=== PATIENT | male | born 1965 | race Caucasian/White ===

== ENCOUNTER 2022-03-31 17:48 | Emergency (ER) | payer OTHER, SELFPAY ==
--- NOTE | ~2022-03-31 | CT_ITS ---
EXAMINATION: CT ABDOMEN AND PELVIS WITHOUT CONTRAST CLINICAL INFORMATION: Hematuria COMPARISON: CT abdomen pelvis 11/02/2016 TECHNIQUE: Multidetector volumetric imaging was performed from the superior aspect of the liver through the pubic symphysis. Sagittal and coronal reformatted images were obtained on the technologist's workstation. This CT examination was performed using dose optimization techniques as appropriate, variously including the following: *Automated exposure control *Adjustment of mA and/or kV according to patient size (this includes techniques or standardized protocols for targeted exams where dose is matched to indication/reason for exam; i.e. extremities or head) *Use of iterative reconstruction technique DLP: 825 mGy-cm FINDINGS: LUNG BASES: The visualized lung bases are unremarkable. LIVER, GALLBLADDER, AND BILIARY TREE: The liver is mildly enlarged measuring 18.8 cm in greatest length and demonstrates decreased attenuation consistent with hepatic steatosis. No focal hepatic lesion or biliary ductal dilatation is present. The gallbladder is unremarkable with no evidence of radiopaque gallstones, gallbladder wall thickening, or obvious pericholecystic inflammatory changes. PANCREAS: Unremarkable. SPLEEN: There is mild splenomegaly at 13.2 cm. ADRENAL GLANDS: Unremarkable. KIDNEYS AND URETERS: The kidneys are normal in size, shape, and attenuation. There is a punctate 2 mm right upper pole renal calculus. No hydronephrosis, hydroureter, or other calculi seen. No perinephric stranding. BLADDER: Unremarkable. GASTROINTESTINAL TRACT: The small and large bowel are unremarkable aside from a few scattered colonic diverticula. The appendix is unremarkable. ABDOMINAL WALL: Tiny inguinal hernias containing only fat. There is mild diastases of the rectus muscles superior to the umbilicus. LYMPH NODES: No retroperitoneal lymphadenopathy. VASCULAR: Unremarkable. Some minimal infiltrate aortic calcified plaque is present. PELVIC VISCERA: There is mild BPH. Seminal vesicles appear normal. OSSEOUS STRUCTURES: Mild degenerative changes present spine most prominent at L5-S1. There is a Schmorl's node at the superior endplate of L4. CT/CT abdomen pelvis wo con IMPRESSION: 1. Mildly enlarged fatty liver with associated mild splenomegaly. 2. Punctate nonobstructing 2 mm right renal calculus. 3. Other incidental findings described above. Fleischner guidelines were followed.
[2022-03-31 20:11] LABS: Appearance Urine CLEAR; Color Urine YELLOW; Glucose Urine UA NEG (NEG); Leukocyte Esterase Urine NEG (NEG); Nitrite Urine NEG (NEG); PH 5.5 (5.0-8.0); Specific Gravity - Urine >= 1.030 (1.005-1.025); Urine Blood NEG (NEG); Urine Ketones NEG (NEG); Urine Protein NEG (NEG-TRACE)
[2022-03-31 20:39] VITALS: BP 110/69; PULSE 71; RESP 18; TEMP 36.7; O2SAT 97; BMI 30.8
[2022-03-31 20:58] LABS: MANUAL DIFF FLAG NO
[2022-03-31 20:59] LABS: Basophils Percent Auto 0.5 % (0-2); Eosinophils Absolute Auto 0.2 X10*3/uL (0.0-0.4); Eosinophils Percent Auto 2.6 % (0-4); Hematocrit 41.7 % (42.0-52.0); Hemoglobin 14.3 g/dl (14.0-18.0); Imm Gran Abs Auto 0.04 X10*3/uL (0.00-0.03); Imm Gran Pct Auto 0.6 % (0.0-0.4); Lymphocytes Absolute Auto 1.9 X10*3/uL (1.2-4.9); Lymphocytes Percent Auto 29.7 % (20-40); Mean Corpuscular HGB Conc 34.3 g/dl (31.0-36.0); Mean Corpuscular Hemoglobin 31.6 pg (27.0-33.0); Mean Corpuscular Volume 92.1 fL (80.0-98.0); Mean Platelet Volume 9.1 fL (9.4-12.4); Monocytes Absolute Auto 0.5 X10*3/uL (0.1-1.2); Monocytes Percent Auto 8.3 % (2-11); Neutrophils Absolute Auto 3.8 x10*3/uL (2.0-8.3); Neutrophils Percent Auto 58.3 % (45-73); Platelet Count 243 X10*3/uL (160-400); Red Blood Count 4.53 X10*6/uL (4.60-5.80); Red Cell Distribution Width 12.3 % (11.0-16.0); White Blood Count 6.5 X10*3/uL (4.8-10.8)
[2022-03-31 21:17] LABS: Alanine Aminotransferase 31 U/L (0-40); Albumin Level 4.4 g/dL (3.5-5.0); Alkaline Phosphatase 53 U/L (39-117); Anion Gap 12 (12-20); Aspartate Amino Transferase 24 U/L (5-37); Blood Urea Nitrogen 16 mg/dL (9-16); Calcium 9.2 mg/dL (8.4-10.2); Carbon Dioxide 25 mmol/L (22-29); Chloride 108 mmol/L (96-108); Creatinine Clr Calc Pharmacy 104.9; Estimated Glomerular Filt Rate > 60; Glucose Random 86 mg/dL (60-115); Potassium 4.2 mmol/L (3.3-5.1); Sodium 141 mmol/L (135-145); Total Protein 6.8 g/dL (6.5-8.0)
[2022-04-01 00:42] VITALS: BP 132/80; PULSE 59; RESP 12; O2SAT 98
--- NOTE | 2022-04-01 00:48 | ED_ITS ---
HPI - Male Genitourinary General Chief complaint: Urogenital-Male Stated complaint: Blood in Urine Time Seen by Provider: 04/01/22 00:20 Source: patient and family ( spouse) Mode of arrival: ambulatory Limitations: no limitations History of Present Illness HPI Narrative: 56-year-old male had 1 time blood in the urine while was urinating yesterday, now patient is urinating clear urine with no blood he can see but started to complain of the whole left side body ache more pronounced to the left groin area. No flank pain, no fever, no chills, no dysuria, no urinary frequency, no more blood in the urine, denies taking any anticoagulation. Related Data Allergies Allergy/AdvReac Type Severity Reaction Status Date / Time No Known Allergies Allergy Verified 03/31/22 20:38 Review of Systems Review of Systems: All other systems are reviewed and are negative Constitutional: Reports as per HPI and Reports no additional constitutional complaints Eyes: Reports as per HPI and Reports no additional eye complaints Reports system reviewed and no additional complaints, except as documented Cardiovascular: Reports as per HPI and Reports no additional cardiovascular complaints Respiratory: Reports as per HPI and Reports no additional respiratory complaints Gastrointestinal: Reports as per HPI and Reports no additional gastrointestinal complaints Genitourinary: Reports no additional female genitourinary complaints Musculoskeletal: Reports no additional musculoskeletal complaints Skin/Breast: Reports system reviewed and no additional complaints, except as docu Psychiatric: Reports no additional psychiatric complaints Endocrine: Reports no additional endocrine complaints Hematologic/Lymphatic: Reports no additional hematologic/lymphatic complaints Allergic/Immunologic: Reports no additional allergic/immunologic complaints Reports system reviewed and no additional complaints, except as documented and Reports Abnormal speech present [facility] Social History Social History Alcohol intake: current Alcohol intake frequency: 3 or more drinks per day Alcohol type: hard liquor Patient Tobacco Use Status: Never used Tobacco Use of substances other than those prescribed or required for medical reasons: No Advance Directives: No Physical Exam Vital Signs: Vital Signs: Last Vital Signs Temp 98.1 F 03/31/22 20:39 Pulse 63 04/01/22 02:00 Resp 12 04/01/22 00:42 BP 123/78 04/01/22 02:00 Pulse Ox 98 04/01/22 02:00 O2 Del Method 04/01/22 02:00 BMI result Body Mass Index 30.8 vital signs have been reviewed as appeared to be correct. Blood pressure normal. Heart rate normal. Respiration rate normal. Temperature normal. Oxygen saturation normal. Appearance: Alert. Oriented X3. No acute distress. Head: Normal external exam. Normocephalic. Atraumatic. No Ovalles signs noted. No raccoon eyes noted Eyes: PERRLA. EOMI. Conjunctiva and sclera normal. Eyelids normal. ENT: TM's Normal. Pharynx normal. Uvula midline. Moist mucous membranes. No trismus noted. No drooling noted. No muffled voice noted. Neck: Normal inspection. Neck supple. FROM. No adenopathy. Thyroid Normal. No meningeal signs. No neck mass noted. CVS: Normal heart rate and rhythm. Heart sound normal. No murmurs noted. Pulses normal throughout. Respiratory: No respiratory distress. Painless inspiration. Breath sounds normal. No wheezes/rales/rhonchi noted. Chest nontender. No accessory muscle usage noted or decreased air movement noted. Abdomen: Soft and nontender. Bowel sounds normal in all 4 quadrants. No distention noted. No organomegaly noted. No visible injury noted. Back: No CVA tenderness. Full range of motion noted. Skin: Skin warm and dry. Normal skin color. Normal skin turgor. No rashes/lesions/lacerations noted. Extremities: No lower extremity edema. Extremities exhibit normal range of motion. Extremities nontender. Neuro: Oriented X 3. Cranial nerve exam: II-XII are grossly intact No motor deficit. No sensory deficit. Reflexes normal. Course Course Course Narrative: 56-year-old male came in for evaluation of hematuria and left-sided abdominal pain patient has unremarkable labs and CT. Will reassure the patient and discharged to follow-up with urologist as an outpatient. MDM - Male Genitourinary Lab Data Attestation: I reviewed the patient's lab results. Result diagrams: 03/31/22 20:48 03/31/22 20:48 Labs: Lab Results 03/31/22 03/31/22 03/31/22 Range/Units 19:42 20:48 20:48 WBC 6.5 (4.8-10.8) X10*3/uL RBC 4.53 L (4.60-5.80) X10*6/uL Hgb 14.3 (14.0-18.0) g/dl Hct 41.7 L (42.0-52.0) % MCV 92.1 (80.0-98.0) fL MCH 31.6 (27.0-33.0) pg MCHC 34.3 (31.0-36.0) g/dl RDW 12.3 (11.0-16.0) % Plt Count 243 (160-400) X10*3/uL MPV 9.1 L (9.4-12.4) fL Immature Gran % (Auto) 0.6 H (0.0-0.4) % Neut % (Auto) 58.3 (45-73) % Lymph % (Auto) 29.7 (20-40) % Wright % (Auto) 8.3 (2-11) % Eos % (Auto) 2.6 (0-4) % Baso % (Auto) 0.5 (0-2) % Lymph # (Auto) 1.9 (1.2-4.9) X10*3/uL Wright # (Auto) 0.5 (0.1-1.2) X10*3/uL Eos # (Auto) 0.2 (0.0-0.4) X10*3/uL Baso # (Auto) 0.0 (0.0-0.2) X10*3/uL Abs Immat Gran (auto) 0.04 H (0.00-0.03) X10*3/uL Absolute Neuts (auto) 3.8 (2.0-8.3) x10*3/uL Absolute Nucleated RBC 0.000 (0.0-0.012) X10*3/uL Nucleated RBC % (auto) 0.0 (0.0-0.2) /100WBC Sodium 141 (135-145) mmol/L Potassium 4.2 (3.3-5.1) mmol/L Chloride 108 (96-108) mmol/L Carbon Dioxide 25 (22-29) mmol/L Anion Gap 12 (12-20) BUN 16 (9-16) mg/dL Creatinine 1.02 (0.5-1.4) mg/dL Estim Creat Clear Calc 104.9 Estimated GFR > 60 Random Glucose 86 (60-115) mg/dL Calcium 9.2 (8.4-10.2) mg/dL Total Bilirubin 1.0 (0.0-1.0) mg/dL AST 24 (5-37) U/L ALT 31 (0-40) U/L Alkaline Phosphatase 53 (39-117) U/L Total Protein 6.8 (6.5-8.0) g/dL Albumin 4.4 (3.5-5.0) g/dL Urine Color YELLOW Urine Appearance CLEAR Urine pH 5.5 (5.0-8.0) Ur Specific [place] >= 1.030 H (1.005-1.025) Urine Protein NEG (NEG-TRACE) MG/DL Urine Glucose (UA) NEG (NEG) MG/DL Urine Ketones NEG (NEG) MG/DL Urine Blood NEG (NEG) Urine Nitrite NEG (NEG) Ur Leukocyte Esterase NEG (NEG) Imaging Data CT abdomen and pelvis.: Attestation: I personally reviewed and interpreted this imaging study as follows: Radiologist's impression: 1.? Mildly enlarged fatty liver with associated mild splenomegaly. 2.? Punctate nonobstructing 2 mm right renal calculus. 3.? Other incidental findings described above. Discharge Plan Discharge Clinical Impression: Hematuria, Abdominal pain Patient Disposition: Home, Self-Care Instructions: Abdominal Pain (ED), Hematuria (ED) Referrals: Elfego Long MD [Physician] -
[2022-04-01 02:00] VITALS: BP 123/78; PULSE 63; O2SAT 98
== END 2022-04-01 03:34 | disposition home or self-care (01) ==
PROVIDERS: Emergency Provider Emergency Medicine
DX: R31.9 Hematuria, unspecified (principal); R10.9 Unspecified abdominal pain; K76.0 Fatty (change of) liver, not elsewhere classified
CPT/HCPCS: 36415; 51798; 74176; 80053; 81003; 85025; 99284

== ENCOUNTER 2025-01-30 19:52 | Emergency (ER) | payer OTHER, SELFPAY ==
--- NOTE | ~2025-01-30 | XR_ITS ---
CLINICAL HISTORY: pain s p crush injury Right hand, 3 views COMPARISON: None FINDINGS: No acute fracture. No dislocation. Chronic appearing distal right 5th metacarpal fracture. Unremarkable soft tissues. IMPRESSION: No acute findings. This document has been electronically signed by: Arron Arredondo MD on 01/30/2025 21:12:53
--- NOTE | ~2025-01-30 | XR_ITS ---
CLINICAL HISTORY: cough Chest X-ray, 2 Views COMPARISON: None FINDINGS: No consolidation. No pleural effusion. No pneumothorax. No cardiomegaly. No acute fracture. IMPRESSION: No acute findings. This document has been electronically signed by: Arron Arredondo MD on 01/30/2025 21:11:22
--- NOTE | ~2025-01-30 | XR_ITS ---
CLINICAL HISTORY: pain s p crush injury Left hand, 3 views COMPARISON: None FINDINGS: No acute fracture. No dislocation. Unremarkable soft tissues. IMPRESSION: No acute findings. This document has been electronically signed by: Arron Arredondo MD on 01/30/2025 21:12:37
[2025-01-30 20:18] VITALS: BP 126/77; PULSE 100; RESP 18; TEMP 36.6; O2SAT 96; BMI 30.2
--- NOTE | 2025-01-30 20:18 | ED_ITS ---
HPI - General Adult General Chief complaint: General Medical Stated complaint: left hand inj/ nasal congestion Time Seen by Provider: 01/30/25 23:00 Source: patient Mode of arrival: ambulatory Limitations: no limitations History of Present Illness ED Provider: HPI narrative: patient complaining of pain in both hands happened yesterday when he was trying to load project architect slipped and handles of the blower landed on his hand especially in the left also patient complaining of cough for last 3 weeks with mucopurulent phlegm patient does smoke and walked outside no fever no chills does not more cough in the night Related Data Previous Rx's ?Medication ?Instructions ?Recorded albuterol sulfate 90 mcg/actuation 2 puff inhalation Q6H PRN 01/30/25 aerosol inhaler shortness of breath or wheezing #8.5 grams cefuroxime axetil 500 mg tablet 500 mg PO BID 7 days #14 tabs 01/30/25 ibuprofen 600 mg tablet 600 mg PO Q6H PRN fever or pain 01/30/25 #30 tabs prednisone 20 mg tablet 40 mg (2 x 20 mg) PO DAILY #10 tabs 01/30/25 Allergies Allergy/AdvReac Type Severity Reaction Status Date / Time No Known Allergies Allergy Verified 01/30/25 20:21 Review of Systems Review of Systems: Yes all other systems are reviewed and are negative [facility] Social History Social History Alcohol intake: current Alcohol intake frequency: 3 or more drinks per day Alcohol type: hard liquor Patient Tobacco Use Status: Never used Tobacco Advance Directives: No Advance Directives Information Provided: No Do you have a plan to hurt others: No Plan Physical Exam ED Vital Signs: Vital Signs - 24 hr 01/30/25 20:18 01/30/25 23:48 Temperature 98 F 98.2 F Pulse Rate 100 75 Respiratory Rate 18 16 Blood Pressure 126/77 145/90 H Pulse Oximetry 96 98 Oxygen Delivery Method Room Air Room Air BMI result Body Mass Index 30.2 Appearance: Alert. Oriented X3. No acute distress. Eyes: no pallor or icterus ENT: Pharynx normal. Oral Mucosa moist Neck: Normal inspection. Neck supple. CVS: Normal heart rate and rhythm. Pulses normal. Respiratory: No respiratory distress. Equal air entry bilateral, no wheezing/rales/rhonchi prolonged expiration with frequent cough Abdomen: Soft and nontender. Bowel sounds are present, no mass palpable, no CVA tenderness Skin: Skin warm and dry. Normal skin color. Normal skin turgor. Extremities: No lower extremity edema. No calf tenderness bilateral diffuse hand tenderness no deformity no open wounds Neuro: Oriented X 3. No motor deficit. No sensory deficit.No cerebellar signs , cranial nerves II-XII intact Course Course Course Narrative: This is an RME: Additional HPI, ROS, PE not included below will be deferred to primary provider. RME assessment and note performed by: Lorrie Workman PA-C This is a [id number]-male who presents to the ER with complaints of BL hand pain. Reports that yesterday he was moving a project architect and the project architect landed on both of his hands. Patient with moderate edema noted to the dorsum of his left hand, with scattered superficial abrasions noted. Unsure of tetanus status. He also reports that over the last month he has had nasal congestion and a cough. No fevers. Lungs clear to auscultation, he is a nonsmoker. Plan: Update tetanus, x-ray chest, and bilateral hands, further ER evaluation needed. Medications Administered Discontinued Medications Generic Name Dose Route Start Last Admin Trade Name Freq PRN Reason Stop Dose Admin Albuterol Sulfate 2 puff 01/30/25 23:17 01/30/25 23:33 Albuterol Sulfate 90 Mcg 8 Gm Inhaler INHALE 01/30/25 23:18 2 puff ONCE ONE Administration Cefuroxime Axetil 500 mg 01/30/25 23:16 01/30/25 23:33 Cefuroxime Axetil 500 Mg Tablet PO 01/30/25 23:17 500 mg ONCE ONE Administration Diphtheria/Tetanus/Acell Pertussis 0.5 ml 01/30/25 20:22 01/30/25 23:15 Diphth,Pertus(Acell),Tet Adult 0.5 Ml Syringe IM 01/30/25 20:23 0.5 ml .ONCE ONE Administration Guaifenesin 600 mg 01/30/25 23:16 01/30/25 23:32 Guaifenesin La 600 Mg Tab.Er.12h PO 01/30/25 23:17 600 mg ONCE ONE Administration Ibuprofen 600 mg 01/30/25 23:19 01/30/25 23:32 Ibuprofen 600 Mg Tablet PO 01/30/25 23:20 600 mg ONCE ONE Administration Prednisone 60 mg 01/30/25 23:16 01/30/25 23:33 Prednisone 20 Mg Tablet PO 01/30/25 23:17 60 mg ONCE ONE Administration Medical Decision Making Medical Decision Making [facility] Narrative: patient clinically with bronchitis and hand contusion from project architect x-ray negative for fracture will give ibuprofen for pain prednisone antibiotics and inhaler for bronchitis Independent Interpretation I performed an independent interpretation of an: Plain X-Ray Interpretation: no acute Discharge Plan Discharge Clinical Impression: Acute bronchitis, Contusion of hand Patient Disposition: Home, Self-Care Instructions: Acute Bronchitis (ED), Contusion in Adults (ED) Additional Instructions: your x-ray of the hands negative for any fracture apply ice take ibuprofen for pain antibiotic and prednisone inhaler for bronchitis as prescribed follow with your PCP if not better stop smoking Prescriptions: New prednisone 20 mg tablet 40 mg PO DAILY Qty: 10 0RF ibuprofen 600 mg tablet 600 mg PO Q6H PRN (Reason: fever or pain) Qty: 30 0RF cefuroxime axetil 500 mg tablet 500 mg PO BID 7 Days Qty: 14 0RF albuterol sulfate 90 mcg/actuation HFA aerosol inhaler 2 puff inhalation Q6H PRN (Reason: shortness of breath or wheezing) Qty: 8.5 0RF Interventions: ED Discharge Assessment Last Done: 01/30/25 23:48 Print Language: Filipino
[2025-01-30] MEDS: Diphth,Pertus(ACell),Tet Adult 0.5 ML SYRINGE IM (23:15)
[2025-01-30] MEDS: guaiFENesin LA 600 MG TAB.ER.12H PO (23:32)
[2025-01-30] MEDS: Ibuprofen 600 MG TABLET PO (23:32)
[2025-01-30] MEDS: Albuterol Sulfate 90 MCG 8 GM INHALER 2 PUFF INHALE (23:33)
[2025-01-30] MEDS: cefuroxime axetiL 500 MG TABLET PO (23:33)
[2025-01-30] MEDS: predniSONE 20 MG TABLET 60 MG PO (23:33)
--- NOTE | 2025-01-30 23:45 | PC.NURSE ---
inhaler education performed
[2025-01-30 23:48] VITALS: BP 145/90; PULSE 75; RESP 16; TEMP 36.8; O2SAT 98
== END 2025-01-30 23:50 | disposition home or self-care (01) ==
PROVIDERS: Emergency Provider Internal Medicine
DX: S60.512A Abrasion of left hand, initial encounter (principal); S60.511A Abrasion of right hand, initial encounter; S60.222A Contusion of left hand, initial encounter; J20.9 Acute bronchitis, unspecified; R09.81 Nasal congestion; R05.9 Cough, unspecified; F17.210 Nicotine dependence, cigarettes, uncomplicated; X58.XXXA Exposure to other specified factors, initial encounter; Y93.9 Activity, unspecified; Y92.9 Unspecified place or not applicable; Y99.8 Other external cause status; Z23 Encounter for immunization
CPT/HCPCS: 71046; 73130; 90471; 90715; 99284

== ENCOUNTER → 2025-01-30 20:22 | Outpatient (BNV) | payer OTHER, SELFPAY | PROVIDERS: Visit Provider Radiology Diagnostic Radiology | DX: M79.641 Pain in right hand (principal); M79.642 Pain in left hand; R05.9 Cough, unspecified | CPT/HCPCS: 71046; 73130 ==

== ENCOUNTER 2025-07-05 18:40 | Emergency (ER) | payer OTHER, SELFPAY ==
--- OUTSIDE RECORDS SUMMARY | 2019-09-24 11:50 | XMS_ITS | Encounter Summary ---
Author Organization [facility] Address [address] [facility] [address] [place] [address] Phone Care Team Providers Care Nutrition Club Ambassador Name Role Phone Phuong Worley RNhome health manager Provider [phone] Encounter Details Date Type Department Care Team (Late st Contact Info) Description 09/24/2019 11:[address] [facility] Hospital Encounter [facility] [address] [place] [address] Brigitte Clark, MANAGER HEAVY DUTY [address] [place] [address] [email or web address] Social History Tobacco Use Types Packs/Day Years Used Date Smoking Tobacco: Never Passive Smoke Exposure: Never Smokeless Tobacco: Never Alcohol Use Standard Drinks/Week Comments Yes 4 (1 standard drink = 0.6 oz pur e alcohol) 2-4 drinks daily Education Answer Date Recorded Are you interested in more education? Not on mikayla e 12/26/2022 Are you concerned about learning? Not on file 12/26/2022 No 12/26/2022 No 12/26/2022 Digital Access Answer Date Recorded No 01/26/2023 No 01/26/2023 Reliable internet access at home? Not on file 01/26/2023 Device with a working camera? Not on file Intimate Partner Violence Answer Date R ecorded Are you denied basic needs s uch as food, clothing, or medical care? No 05/28/2024 In the past 12 months have y ou been in a relationship with a person who hurts, threatens, or tries to control you? No 05/28/2024 Are you denied basic needs s uch as food, clothing, or medical care? No 05/28/2024 In the past 12 months have y ou been in a relationship with a person who hurts, threatens, or tries to control you? No 05/28/2024 Sex and Gender Information Value Date Recorded Sex Assigned at Male 02/28/2018 8:41 AM EDT Legal Sex Male 9:43 PM EDT Gender Identity Male 02/28/2018 8:41 AM EDT Sexual Orientation Straight 02/28/2018 8: 41 AM EDT documented as of this encounter Functional Status * Calculated C-SSRS Risk Score (Lifetime/Recent) Answer Date of Assessment Author No Risk Indicated 05/28/2024 11:16 AM EDT Shy Qiu RN * [place] Suicide Severity Rating Scale (Screener/Recent Self-Report) Question Answer Date of Assessment Author 1. Wish to be (Past 1 Month) No 05/28/2024 11:16 AM EDT Miguel Amezcua RN 2. Non-Specific Active Suicidal Thoughts (Past 1 Month) No 05/28/2024 11:16 AM EDT Miguel Amezcua RN 6. Suicidal Behavior (Lifetime) No 05/28/2024 11:16 AM EDT Miguel Amezcua RN documented as of this encounter Plan of Treatment Upcoming Encounters Date Type Department Care Team (Late st Contact Info) Description 07/06/2025 8:00 AM EST Office Visit [facility] [address] [place] [address] Lisseth Meza MD [address] [facility] [place] [address] Suze Stringer, OT [address] [place] [address] 04/23/2026 8:00 AM EDT Office Visit [facility] [address] [place] [address] [place] [address] Lashae Palacio, MANAGER HEAVY DUTY [address] [place] [address] [email or web address] documented as of this encounter Procedures Procedure Name Priority Date/Time Associated Diagnosis Comments XR CHEST PA AND LATERAL 2 VIEWS Urgent/patient waiting 09/24/2019 11:55 AM EST Persistent cough documented in this encounter Results * XR CHEST PA AND LATERAL 2 VIEWS (09/24/2019 11:55 AM EST) Anatomical Region Laterality Modality Chest Radiographic Misty ging 09/24/2019 12:0 8 PM EST Impressions 09/24/2019 12:09 PM EST No acute cardiopulmonary abnormality is detected. POS - [id number] Narrative 09/24/2019 12:09 PM EST PA and lateral views the chest obtained. Comparison made to prior of February 28, 2018 and others as far back as 2008. Heart and mediastinal contours appear similar. Some mild increased density over the left hilum appears unchanged since 2008. No infiltrates or effusions identified. Heart and mediastinal contours appear unchanged. There is minor rotation to the right. No free air or pneumothorax. No compression deformity. Procedure Note Naz Mahan MD - 09/24/2019 PA and lateral views the chest obtained. Comparison made to prior of 2017 and others as far back as 2008. Heart and mediastinal contoursappear similar. Some mild increased density over the left hilum appearsunchanged since 2008. No infiltrates or effusions identified. Heart andmediastinal contours appear unchanged. There is minor rotation to theright. No free air or pneumothorax. No compression deformity. IMPRESSION: No acute cardiopulmonary abnormality is detected. POS - [id number] Brigitte Clark MANAGER HEAVY DUTY IMG XR CHEST Final R esult documented in this encounter Visit Diagnoses Not on filedocumented in this encounter Additional Health Concerns Infection Onset Date Last Indicated Resolved Time CDiff-Risk 05/28/2024 05/28/2024 06/04/2024 1:23 AM EDT Assessment Noted Time A Body Mass Index follow-up plan has been documented for the patient 03/09/2019 2:49 PM EDT PHQ-2 Depression Total Score: 0 03/04/20 3:07 PM EDT documented as of this encounter Care Teams Nutrition Club Ambassador Relationship Specialty Start Date End Date Phuong Worley RN [address] [place] [id number] [email or web address] PCP - General Internal Medicine 03/04/19 02/09/21 documented as of this encounter Additional Source Comments The information contained in this document represents components of the legal health record. It is not the complete legal health record.[facility]
--- OUTSIDE RECORDS SUMMARY | 2023-06-15 07:33 | XMS_ITS | Encounter Summary ---
Author Organization [facility] Address [address] [place] [address] Phone Care Team Providers Care Hydraulic Governor Assembler Name Role Phone Lashae Palacio CNP Primary Care Provid er Encounter Details Date Type Department Care Team (Late st Contact Info) Description 06/15/2023 8:33 AM EDT Hospital Encounter [facility] [address] [place] [id number] Izabela Buenrostro FNP [address] [place] [id number] [email or web address] Social History Tobacco Use Types Packs/Day Years [...] 11:16 AM EDT Shy Qiu RN * [place] Suicide Severity Rating Scale (Screener/Recent Self-Report) Question Answer Date of Assessment Author 1. Wish to be (Past 1 Month) No 05/28/2024 11:16 AM EDT Miugel Amezcua RN 2. Non-Specific Active Suicidal Thoughts (Past 1 Month) No 05/28/2024 11:16 AM EDT Miguel Amezcua RN 6. Suicidal Behavior (Lifetime) No 05/28/2024 11:16 AM EDT Miguel Amezcua RN documented as of this encounter Plan of Treatment Upcoming Encounters Date Type Department Care Team (Late st Contact Info) Description 07/06/2025 8:00 AM EST Office Visit [facility] [address] [place] [address] Lisseth Meza MD 4 [facility] [place] [address] Suze Stringer, OT [address] [place] [address] 04/23/2026 8:00 AM EDT Office Visit [facility] [address] [place], [place] [address] Lashae Palacio, MARKET SALES MANAGER [address] [place] [address] [email or web address] documented as of this encounter Procedures Procedure Name Priority Date/Time Associated Diagnosis Comments XR FOOT 3 OR MORE VIEWS (RIGHT) Urgent/patient waiting 06/15/2023 8:39 AM EDT Acute gouty arthritis documented in this encounter Results * XR FOOT 3 OR MORE VIEWS (RIGHT) (06/15/2023 8:39 AM EDT) Anatomical Region Laterality Modality Foot Right Computed Radiogr aphy 06/15/2023 8:42 AM EDT Impressions 06/15/2023 8:59 AM EDT 1. No displaced fracture or dislocation. 2. Soft tissue swelling about the first MTP and forefoot, which may represent gout or cellulitis. No osseous erosion. ATTESTATION: I, Petros Ramirez as teaching physician, have reviewed the images for this case and if necessary edited the report originally created by Catarino Apple. Narrative 06/15/2023 8:59 AM EDT XR FOOT 3 OR MORE VIEWS (RIGHT) COMPARISON: XR FOOT 3 OR MORE VIEWS (RIGHT) FINDINGS: No displaced fracture or dislocation. Soft tissue swelling around the first MTP and forefoot. No osseous erosion. First metatarsal bipartite medial sesamoid. Normal joint spaces. Soft tissue swelling about ankle. Tiny Achilles enthesophyte. Procedure Note Petros Ramirez MD - 06/15/2023 XR FOOT 3 OR MORE VIEWS (RIGHT) COMPARISON: XR FOOT 3 OR MORE VIEWS (RIGHT) 2021- FINDINGS: No displaced fracture or dislocation. Soft tissue swelling around thefirst MTP and forefoot. No osseous erosion. First metatarsal bipartitemedial sesamoid. Normal joint spaces. Soft tissue swelling about ankle.Tiny Achilles enthesophyte. IMPRESSION: 1. No displaced fracture or dislocation. 2. Soft tissue swelling about the first MTP and forefoot, which mayrepresent gout or cellulitis. No osseous erosion. ATTESTATION: I, Petros Ramirez as teaching physician, have reviewed theimages for this case and if necessary edited the report originally createdby Catarino Apple. us Izabela Hardin Chitra PIANO REGULATOR IMG XR LOWER EXTREMITY Itzel l Result documented in this encounter Visit Diagnoses Not on filedocumented in this encounter Additional Health Concerns Infection Onset Date Last Indicated Resolved Time CDiff-Risk 05/28/2024 05/28/2024 06/04/2024 1:23 AM EDT Assessment Noted Time A Body Mass Index follow-up plan has been documented for the patient 03/09/2019 2:49 PM EDT PHQ-2 Depression Total Score: 0 03/04/20 19 3:07 PM EDT documented as of this encounter Care Teams Hydraulic Governor Assembler Relationship Specialty Start Date End Date Lashae Palacio CNP [address] [place] [address], [address] [place] [address] [email or web address] PCP - General Family Medicine 04/17/23 documented as of this encounter Additional Source Comments The information contained in this document represents components of the legal health record. It is not the complete legal health record.[facility]
--- NOTE | ~2025-07-05 | CT_ITS ---
CLINICAL HISTORY: PE hx, L sided CP CT angiography chest with contrast. 3D Postprocessing. Comparison: None provided Findings: The heart size is normal. RV/LV ratio is normal. The thoracic aorta is normal caliber. No main or segmental pulmonary emboli identified. Hiatal hernia. The lungs are clear. The upper abdomen is unremarkable. The bones are intact. IMPRESSION: 1. Hiatal hernia. 2. No main or segmental pulmonary emboli identified. This document has been electronically signed by: Simba Melchor MD on 07/05/2025 23:28:53
--- NOTE | ~2025-07-05 | XR_ITS ---
CLINICAL HISTORY: Chest pain 2 view chest x-ray. Comparison: CR - XR CHEST 2V - 01/30/25 20:32 EDT Findings: Heart size is normal. No consolidation or effusion. No acute fracture. The visualized upper abdomen is unremarkable. Impression: No acute cardiopulmonary process. This document has been electronically signed by: Faith Good MD on 07/05/2025 19:39:44
--- NOTE | 2025-07-05 18:42 | ECG_ITS ---
Test Reason : cp Blood Pressure : */* mmHG Vent. Rate : 80 BPM Atrial Rate : 80 BPM P-R Int : 194 ms QRS Dur : 102 ms QT Int : 388 ms P-R-T Axes : 47 -28 4 degrees QTcB Int : 447 ms Normal sinus rhythm Moderate voltage criteria for LVH, may be normal variant ( R in aVL , Mau product ) Borderline ECG When compared with ECG of 08-Mar-2006 00:24, No significant change was found Referred By: Rik Lopes Electronically Signed By: Joshua Coreas
[2025-07-05 18:52] VITALS: BP 174/97; PULSE 81; RESP 18; TEMP 36.6; O2SAT 98; BMI 30.2
--- NOTE | 2025-07-05 18:56 | ED_ITS ---
HPI - General Adult General Chief complaint: Chest Pain Stated complaint: chest pain over 3 weeks Time Seen by Provider: 07/05/25 21:34 History of Present Illness ED Provider: Andre Worthington MD HPI narrative: 60-year-old male with daily drinking habit, history of meniscal tear questionable new onset hypertension diagnosed but not on meds. Reports left- sided chest pain ongoing for 3 weeks this is daily and all day long not provoked or exacerbated by anything. He denies dyspnea cough or fever no hemoptysis. He has had leg edema right greater than left unclear how long this is going on but sounds chronic he is a poor historian in this regard. Reports a meniscal surgery years ago and a PE about 8 years ago he was on 6 months of anticoagulant. Unclear based on the history whether that was provoked by anything Related Data Previous Rx's ?Medication ?Instructions ?Recorded albuterol sulfate 90 mcg/actuation 2 puff inhalation Q 6H PRN 01/30/25 aerosol inhaler shortness of breath or wheez ing #8.5 grams cefuroxime axetil 500 mg tablet 500 mg PO BID 7 days # 14 tabs 01/30/25 ibuprofen 600 mg tablet 600 mg PO Q6H PRN fever or p ain 01/30/25 #30 tabs prednisone 20 mg tablet 40 mg (2 x 20 mg) PO DAILY # 10 tabs 01/30/25 furosemide 20 mg tablet (Lasix) 20 mg PO DAILY 1 week #7 tabs 07/05/25 Allergies Allergy/AdvReac Type Severity Reaction Status Date / Time No Known Allergies Allergy Verified 07/05/25 18:53 [facility] Social History Social History Alcohol intake: current Alcohol intake frequency: does not drink Alcohol type: beer Patient Tobacco Use Status: Never used Tobacco Smoked in Last 30 Days: No Use of substances other than those prescribed or required for medical reasons: No Advance Directives: No Advance Directives Information Provided: No Do you have a plan to hurt others: No Plan Physical Exam ED Exam Exam: EXAM: Gen: Alert, awake, well appearing, well hydrated. Head: Atraumatic Eyes: Anicteric, Normal conjunctiva. ENT: Moist mucosa, no pallor. ? Neck: Supple. Skin: ?No observable rash or bruising on exposed or examined skin Respiratory: Breathing comfortably, No distress.Clear to auscultation bilaterally, symmetric chest expansion, No wheeze, rales, ronchi. Cardiovascular: Regular rate and rhythm. No murmurs or rub. Well perfused periphery, warm extremities. 3+ edema bilaterally to the knee, right greater than left. ? Abdominal: No focal tenderness. Soft, no objective distension. No palpable masses or obvious organomegaly. ?No guarding, no rebound tenderness or other peritoneal findings. : No flank tenderness. Neuro: Alert. Gross movement of all extremities intact. ? Psych: Calm. Cooperative. MSK: No grossly visible deformity. Vital signs: See flowsheet Vital Signs: Vital Signs - 24 hr 07/05/25 18:52 07/05/25 21:33 07/05/25 23:56 Temperature 98 F 97.8 F 97.8 F Pulse Rate 81 67 59 Respiratory Rate 18 16 16 Blood Pressure 174/97 H 166/93 H 167/92 H Pulse Oximetry 98 99 99 Oxygen Delivery Method Room Air Room Air Room Air BMI result Body Mass Index 30.2 Course Course Course Narrative: RME: 60-year-old male history of PE presents to ED for left-sided chest pain for the past 3 weeks patient denies any recent travel or recent surgery. Labs EKG x-ray ordered Medications Administered Discontinued Medications Generic Name Dose Route Start Last Admin Trade Name Freq PRN Reason Stop Dose Admin Iohexol 100 ml 07/05/25 22:52 07/05/25 22:52 Iohexol 350 Mg/Ml 100 Ml Infus..Btl IV 07/05/25 22:53 65 ml ONCE ONE Administration Medical Decision Making Medical Decision Making [facility] Narrative: Medical Decision Making: [age] male with left-sided chest pain constantly and daily without clear provocation for 3 weeks. Does not sound consistent with ACS. PE history think dimer will suffice. Patient was still concern after negative D-dimer reassuring troponin ECG. CTA was ordered. There was no visualized PE on this study. Patient has atypical chest pain more suggestive of musculoskeletal etiology with reassuring imaging biomarkers ECG. Exam incidentally identified probably chronic edema possibly lymphedema I strongly encouraged him to call his PCP for referral to vascular follow up or local lymphedema clinic Preliminary Favored Differential Diagnosis: PE, costochondritis, ACS less likely symptomatology character not suggestive of aortic dissection among additional considered etiologies Testing Interpreted Independently: Sinus rhythm rate 80 QTC 447 no acute ischemic changes left axis Radiology or Lab testing Results Reviewed: ?CT report reviewed Consults: ?See below for details Independent Historians/External Chart Reviews: ?See below for details Social Determinants of Health Impacting MDM/Planning: ?See below for details Lab Data MDM Lab Attestation statement: I reviewed the patient's lab results. 07/05/25 19:26 07/05/25 19:26 Labs: Lab Results 07/05/25 07/05/25 Range/Units 19:26 21:38 WBC 5.9 (4.8-10.8) X10*3/uL RBC 4.18 L (4.60-5.80) X10*6/uL Hgb 13.7 L (14.0-18.0) g/dl Hct 39.4 L (42.0-52.0) % MCV 94.3 (80.0-98.0) fL MCH 32.8 (27.0-33.0) pg MCHC 34.8 (31.0-36.0) g/dl RDW 12.4 (11.0-16.0) % Plt Count 235 (160-400) X10*3/uL MPV 8.4 L (9.4-12.4) fL Immature Gran % (Auto) 0.2 (0.0-0.4) % Neut % (Auto) 57.2 (45-73) % Lymph % (Auto) 30.6 (20-40) % Beaver % (Auto) 8.9 (2-11) % Eos % (Auto) 2.1 (0-4) % Baso % (Auto) 1.0 (0-2) % Lymph # (Auto) 1.8 (1.2-4.9) X10*3/uL Beaver # (Auto) 0.5 (0.1-1.2) X10*3/uL Eos # (Auto) 0.1 (0.0-0.4) X10*3/uL Baso # (Auto) 0.1 (0.0-0.2) X10*3/uL Abs Immat Gran (auto) 0.01 (0.00-0.03) X10*3/uL Absolute Neuts (auto) 3.4 (2.0-8.3) x10*3/uL Absolute Nucleated RBC 0.000 (0.0-0.012) X10*3/uL Nucleated RBC % (auto) 0.0 (0.0-0.2) /100WBC PT 14.3 H (11.2-13.5) SEC INR 1.2 H (0.9-1.1) APTT 27.5 (26.7-34.1) SEC D-Dimer High Sensitivty 170 NG/ML Sodium 142 (135-145) mmol/L Potassium 3.6 (3.3-5.1) mmol/L Chloride 106 (96-108) mmol/L Carbon Dioxide 27 (22-29) mmol/L Anion Gap 13 (12-20) BUN 10 (9-16) mg/dL Creatinine 0.88 (0.5-1.4) mg/dL Estim Creat Clear Calc 114.6 Estimated GFR > 60 Random Glucose 80 (60-115) mg/dL Calcium 8.7 (8.4-10.2) mg/dL Total Bilirubin 1.0 (0.0-1.0) mg/dL AST 40 H (5-37) U/L ALT 27 (0-40) U/L Alkaline Phosphatase 64 (39-117) U/L Troponin I High Sens < 2.7 < 2.7 (<3.5-35.0) ng/L NT-Pro-B Natriuret Pep 286.3 (<300) pg/mL Total Protein 6.8 (6.5-8.0) g/dL Albumin 4.3 (3.5-5.0) g/dL Discharge Plan Discharge Clinical Impression: Atypical chest pain, Edema Patient Disposition: Home, Self-Care Instructions: Chest Pain (ED) Additional Instructions: _ DISCHARGE DIAGNOSES: Chest pain of unclear cause reassuring emergency department workup with negative blood tests for heart attack or blood clot in the lung HISTORY OF PRESENTATION: ?Left-sided chest pain for 3 weeks EMERGENCY DEPARTMENT COURSE,TESTS, TREATMENTS: While in the ED today we excluded blood clot or heart attack based on lab work. You had a reassuring EKG and chest x-ray. We did find that you have significant swelling in the legs bilaterally DISCHARGE MEDICATIONS: We have prescribed Lasix for 1 week which is medication that increases the mi urinate to get fluid off of your legs. FOLLOW-UP: ?Call your primary or general physician soon as possible to discuss your symptoms, your ED visit and to discuss follow up plans Call your primary doctor you will need outpatient follow up and possible referral to Cardiology and/or vascular. You can call vascular surgery for follow up as you may need outpatient vascular testing for the significant edema you have an your leg which could be vascular insufficiency or lymphedema or other causes that need to be looked into INSTRUCTIONS ?& RETURN PRECAUTIONS: If any symptoms change first call your primary physician, if it is after-hours your primary doctors office should have a provider emotional support teacher you can speak with. If the symptoms are severe or very concerning to you then call 911 or return to the ED. Andre Worthington MD Emergency Physician [facility] Prescriptions: New furosemide [Lasix] 20 mg tablet 20 mg PO DAILY 7 Days Qty: 7 0RF No Action prednisone 20 mg tablet 40 mg PO DAILY Qty: 10 0RF ibuprofen 600 mg tablet 600 mg PO Q6H PRN (Reason: fever or pain) Qty: 30 0RF cefuroxime axetil 500 mg tablet 500 mg PO BID 7 Days Qty: 14 0RF albuterol sulfate 90 mcg/actuation HFA aerosol inhaler 2 puff inhalation Q6H PRN (Reason: shortness of breath or wheezing) Qty: 8.5 0RF Interventions: ED Discharge Assessment Last Done: 07/05/25 23:56 Discharge Date/Time: 07/05/25 23:57 Print Language: Georgian
[2025-07-05 19:30] LABS: MANUAL DIFF FLAG NO
[2025-07-05 19:31] LABS: Hematocrit 39.4 % (42.0-52.0); Hemoglobin 13.7 g/dl (14.0-18.0); Imm Gran Abs Auto 0.01 X10*3/uL (0.00-0.03); Imm Gran Pct Auto 0.2 % (0.0-0.4); Lymphocytes Absolute Auto 1.8 X10*3/uL (1.2-4.9); Mean Corpuscular HGB Conc 34.8 g/dl (31.0-36.0); Mean Corpuscular Hemoglobin 32.8 pg (27.0-33.0); Mean Corpuscular Volume 94.3 fL (80.0-98.0); NRBC Abs Auto 0.000 X10*3/uL (0.0-0.012); NRBC Pct Auto 0.0 /100WBC (0.0-0.2); Platelet Count 235 X10*3/uL (160-400); Red Blood Count 4.18 X10*6/uL (4.60-5.80); White Blood Count 5.9 X10*3/uL (4.8-10.8)
[2025-07-05 19:36] LABS: INTERNATIONAL NORM RATIO 1.2 (0.9-1.1); Prothrombin Time 14.3 SEC (11.2-13.5)
[2025-07-05 19:39] LABS: Partial Thromboplastin Time 27.5 SEC (26.7-34.1)
[2025-07-05 19:44] LABS: Alanine Aminotransferase 27 U/L (0-40); Albumin Level 4.3 g/dL (3.5-5.0); Alkaline Phosphatase 64 U/L (39-117); Anion Gap 13 (12-20); Aspartate Amino Transferase 40 U/L (5-37); Blood Urea Nitrogen 10 mg/dL (9-16); Calcium 8.7 mg/dL (8.4-10.2); Carbon Dioxide 27 mmol/L (22-29); Chloride 106 mmol/L (96-108); Creatinine Clr Calc Pharmacy 114.6; Estimated Glomerular Filt Rate > 60; Potassium 3.6 mmol/L (3.3-5.1); Sodium 142 mmol/L (135-145); Total Protein 6.8 g/dL (6.5-8.0)
[2025-07-05 19:51] LABS: NT Pro B Type Natriuretic Pept 286.3 pg/mL (<300)
[2025-07-05 19:53] LABS: Troponin-I High Sensitivity < 2.7 ng/L (<3.5-35.0)
[2025-07-05 21:33] VITALS: BP 166/93; PULSE 67; RESP 16; TEMP 36.6; O2SAT 99
--- OUTSIDE RECORDS SUMMARY | 2025-07-05 21:43 | XMS_ITS | Encounter Summary ---
Author Organization [facility] Address [address] [place] [phone] Phone Care Team Providers Care Lead Sprinkler Name Role Phone Mark Gerard MD Primary Care Provider [phone] Phuong Worley RNcook mayonnaise Provider [phone] Mark Gerard MD Primary Care Provider [phone] Felix Higgins MD Primary Care Provider [phone] Phuong Worley RNcook mayonnaise Provider [phone] Ashley Bradford MD Primary Care Provider [phone] Melina Pathak MD Primary Care Provider [email or web address] Lashae Palacio [facility] Primary Care Provid er Encounter Details Date Type Department Care Team (Late st Contact Info) Description 03/01/2018 Procedure Pass [facility], Ct Scan - [address] [address] Social History Tobacco Use Types Packs/Day Years Used Date Smoking Tobacco: Former Smokeless Tobacco: Never Alcohol Use Standard Drinks/Week Comments Yes 0 (1 standard drink = 0.6 oz pur e alcohol) Sex and Gender Information Value Date Recorded Sex Assigned at Male 02/28/2018 8:41 AM EDT Legal Sex Male 9:43 PM EDT Gender Identity Male 02/28/2018 8:41 AM EDT Sexual Orientation Straight 02/28/2018 8: 41 AM EDT documented as of this encounter Plan of Treatment Upcoming Encounters Date Type Department Care Team (Late st Contact Info) Description 07/06/2025 8:00 AM EST Office Visit [facility] [address] [place] [address] Lisseth Meza MD [address] [facility] Orthopedics & Sports Medicine, [facility] [place] [address] Suze Stringer, OT [address] [place] [address] 04/23/2026 8:00 AM EDT Office Visit [facility] Medical [address] [place] [address] Lashae Palacio, [facility] [address] [facility], [address] [place] [address] documented as of this encounter Visit Diagnoses Not on filedocumented in this encounter Additional Health Concerns Infection Onset Date Last Indicated Resolved Time CDiff-Risk 05/28/2024 05/28/2024 06/04/2024 1:23 AM EDT documented as of this encounter Care Teams Lead Sprinkler Relationship Specialty Start Date End Date Mark Gerard MD [address] [place] [address] [email or web address] PCP - General 09/03/17 03/04/18 Phuong Worley RN [address] [place] [address] [email or web address] PCP - General Internal Medicine 03/05/18 12/28/18 Mark Gerard MD [address] [place] [address] [email or web address] PCP - General Family Medicine 02/05/19 03/03/19 Felix Higgins MD [address] [facility] [place] [address] [email or web address] PCP - General Family Medicine 12/29/18 02/04/19 Phuong Worley RN [address] [place] [address] [email or web address] PCP - General Internal Medicine 03/04/19 02/09/21 Ashley Bradford MD [address] [facility]nd [place] [address] [email or web address] PCP - General General Surgery 02/10/21 04/28/21 Melina Pathak MD [email or web address] PCP - General Family Medicine 04/29/2104/16 Lashae Palacio CNP [address] [place] [address], [address] [place] [address] [email or web address] PCP - General Family Medicine 04/17/23 documented as of this encounter Additional Source Comments The information contained in this document represents components of the legal health record. It is not the complete legal health record.[facility]
--- OUTSIDE RECORDS SUMMARY | 2025-07-05 21:43 | XMS_ITS | Encounter Summary ---
Author Organization [facility] Address [email or web address] [facility] [address] [place] [phone] Phone Care Team Providers Care Asphalt Worker Name Role Phone Lashae Palacio CNP Primary Care Provid er Encounter Details Date Type Department Care Team (Late st Contact Info) Description 02/22/2025 Procedure Pass [facility], [address] [address] Social History Tobacco Use Types Packs/Day Years [...] Description 07/06/2025 8:00 AM EST Office Visit [facility] Rehabilitation Services [address] [place] [address] Lisseth Meza MD [address] [place] [address] Orthopedics & Sports Medicine, [place] [address] Suze Stringer, OT [address] [place] [address] 04/23/2026 8:00 AM EDT Office Visit [facility] [address] [place] [address] [place] [address] Lashae Palacio CNP [address] [facility], [address] [place] [id number] documented as of this encounter Visit Diagnoses Not on filedocumented in this encounter Additional Health Concerns Assessment Noted Time A Body Mass Index follow-up plan has been documented for the patient 03/09/2019 2:49 PM EDT PHQ-2 Depression Total Score: 0 03/04/20 19 3:07 PM EDT documented as of this encounter Care Teams Asphalt Worker Relationship Specialty Start Date End Date Lashae Palacio CNP [address] [place] [address], [address] [place] [id number] PCP - General Family Medicine 04/17/23 documented as of this encounter Additional Source Comments The information contained in this document represents components of the legal health record. It is not the complete legal health record.[facility]
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
--- OUTSIDE RECORDS SUMMARY | 2025-07-05 21:43 | XMS_ITS | Encounter Summary ---
Author Organization [facility] Address [address] [place] [id number] Phone Care Team Providers Care Retail Department Supervisor Name Role Phone Melina Pathak MD Primary Care Provider [email or web address] Lashae Palacio CNP Primary Care Provid er Encounter Details Date Type Department Care Team (Late st Contact Info) Description 05/08/2022 Procedure Pass [facility], Ct Scan - [address] [address] Social History Tobacco Use Types Packs/Day Years Used Date Smoking Tobacco: Never Smokeless Tobacco: Never Alcohol Use Standard Drinks/Week Comments Yes 4 (1 standard drink = 0.6 oz pur e alcohol) a day Sex and Gender Information Value Date Recorded Sex Assigned at Male 02/28/2018 8:41 AM EDT Legal Sex Male 9:43 PM EDT Gender Identity Male 02/28/2018 8:41 AM EDT Sexual Orientation Straight 02/28/2018 8: 41 AM EDT documented as of this encounter Functional Status * Calculated C-SSRS Risk Score (Lifetime/Recent) Answer Date of Assessment Author No Risk Indicated 05/08/2022 2:27 PM EDT Johnna Haynes RN * [place] Suicide Severity Rating Scale (Screener/Recent Self-Report) Question Answer Date of Assessment Author 1. Wish to be (Past 1 Month) No 05/08/2022 2:27 PM EDT Johnna Haynes RN 2. Non-Specific Active Suicidal Thoughts (Past 1 Month) No 05/08/2022 2:27 PM EDT Johnna Haynes RN 6. Suicidal Behavior (Lifetime) No 05/08/2022 2:27 PM EDT Johnna Haynes RN documented as of this encounter Plan of Treatment Upcoming Encounters Date Type Department Care Team (Late st Contact Info) Description 07/06/2025 8:00 AM EST Office Visit [facility] [address] [place] [address] Lisseth Meza MD [address] [place] [address] Orthopedics & Sports Medicine, [facility] [place] [address] [email or web address] Suze Stringer, OT [address] [place] [address] [email or web address] 04/23/2026 8:00 AM EDT Office Visit [facility] [address] [place] [address] [place] [address] Lashae Palacio CNP [address] [place] [address], [address] [place] [address] [email or web address] documented as of this encounter Visit Diagnoses [...] documented as of this encounter Care Teams Retail Department Supervisor Relationship Specialty Start Date End Date Melina Pathak MD [email or web address] PCP - General Family Medicine 04/29/2104/16 Lashae Palacio CNP [address] [place] [address], [address] [place] [address] (work) [email or web address] PCP - General Family Medicine 04/17/23 documented as of this encounter Additional Source Comments The information contained in this document represents components of the legal health record. It is not the complete legal health record.[facility]
--- OUTSIDE RECORDS SUMMARY | 2025-07-05 21:43 | XMS_ITS | Encounter Summary ---
Author Organization [facility] Address [address] [place] [address] Phone Care Team Providers Care Senior Medical Writer Name Role Phone Lashae Palacio CNP Primary Care Provid er Encounter Details Date Type Department Care Team (Late st Contact Info) Description 05/28/2024 Procedure Pass [facility], Ct Scan - [address] [address] Social History Tobacco Use Types Packs/Day Years [...] 11:16 AM EDT Shy Qiu RN * [place] Suicide Severity Rating Scale (Screener/Recent Self-Report) Question [...] Description 07/06/2025 8:00 AM EST Office Visit [facility] [address] [place] [address] Lisseth Meza MD [address] [place] [address] [facility] [place] [address] Suze Stringer, OT [address] [place] [address] 04/23/2026 8:00 AM EDT Office Visit [facility] [address] [place] [address] [place] [address] Lashae Palacio, [address] [place] [address] [email or web address] documented as of this encounter Visit Diagnoses [...] documented as of this encounter Care Teams Senior Medical Writer Relationship Specialty Start Date End Date Lashae Palacio CNP [address] [place] [address], [address] [place] [address] [email or web address] PCP - General Family Medicine 04/17/23 documented as of this encounter Additional Source Comments The information contained in this document represents components of the legal health record. It is not the complete legal health record.[facility]
--- OUTSIDE RECORDS SUMMARY | 2025-07-05 21:43 | XMS_ITS | Encounter Summary ---
Author Organization [facility] Address [address] [facility] [address] [place] [address] Phone Care Team Providers Care Thickener Operator Name Role Phone Mark Gerard MD Primary Care Provider [phone] Phuong Worley RNphysics and astronomy professor Provider [phone] Ashley Bradford MD Primary Care Provider [phone] Melina Pathak MD Primary Care Provider [email or web address] Lashae Palacio [facility] Primary Care Provid er Encounter Details Date Type Department Care Team (Late st Contact Info) Description 02/18/2019 Procedure Pass [facility], [address] [address] Social History Tobacco Use Types Packs/Day Years [...] AM EDT documented as of this encounter Last Filed Vital Signs Vital Sign Reading Time Taken Comments Blood Pressure - - Pulse - - Temperature - - Respiratory Rate - - Oxygen Saturation - - Inhaled Oxygen Concentration - - Weight 108.9 kg (240 lb) 02/20/2019 1:36 PM EDT Height 188 cm (6' 2 ) 02/20/2019 1:36 PM EDT Body Mass Index 30.81 02/20/2019 1:36 PM EDT documented in this encounter Plan of Treatment Upcoming Encounters Date Type Department Care Team (Late st Contact Info) Description 07/06/2025 8:00 AM EST Office Visit [facility] [address] [place] [address] Lisseth Meza MD [address] [facility] [place] [address] Suze Stringer, OT [address] [place] [address] 04/23/2026 8:00 AM EDT Office Visit [address] [place] [address] Lashae Palacio, DOTTY [address] [facility], 2nd [place] [address] documented as of this encounter Visit Diagnoses Not on filedocumented in this encounter Additional Health Concerns Infection Onset Date Last Indicated Resolved Time CDiff-Risk 05/28/2024 05/28/2024 06/04/2024 1:23 AM EDT Assessment Noted Time A Body Mass Index follow-up plan has been documented for the patient 03/14/2018 7:16 PM EDT documented as of this encounter Care Teams Thickener Operator Relationship Specialty Start Date End Date Mark Gerard MD [address] [place] [address] [email or web address] PCP - General Family Medicine 02/05/19 03/03/19 Phuong Worley RN [address] [place] [address] PCP - General Internal Medicine 03/04/19 02/09/21 Ashley Bradford MD [address] [facility], [address] [place] [address] [email or web address] PCP - General General Surgery 02/10/21 04/28/21 Melina Pathak MD [email or web address] PCP - General Family Medicine 04/29/2104/16 Lashae Palacio CNP [address] [place] [address], [address] [place] [address] [email or web address] PCP - General Family Medicine 04/17/23 documented as of this encounter Additional Source Comments The information contained in this document represents components of the legal health record. It is not the complete legal health record.[facility]
[2025-07-05 21:55] LABS: D Dimer High Sensitivity 170 NG/ML
[2025-07-05 22:14] LABS: Troponin-I High Sensitivity < 2.7 ng/L (<3.5-35.0)
--- NOTE | 2025-07-05 22:24 | PC.NURSE ---
Addendum entered by Burton Choudhary RN 07/05/25 22:33: per MD will do chest CT. Original Note: upon speaking to patient about discharge, patient stated he is concerned about being discharged as alst time he had this pain at [facility], they admitted him and only found the PE after 2 days of being there. MD neeta wilkins made aware and awaiting response.
[2025-07-05 22:31] VITALS: PULSE 75
[2025-07-05] MEDS: iohexoL 350 MG/ML 100 ML INFUS..BTL IV (22:52)
[2025-07-05 23:56] VITALS: BP 167/92; PULSE 59; RESP 16; TEMP 36.6; O2SAT 99
== END 2025-07-05 23:57 | disposition home or self-care (01) ==
PROVIDERS: Emergency Medicine; Physician Assistant; Emergency Provider Emergency Medicine
DX: R07.9 Chest pain, unspecified (principal); R60.0 Localized edema; K44.9 Diaphragmatic hernia without obstruction or gangrene; Z86.711 Personal history of pulmonary embolism
CPT/HCPCS: 36415; 71046; 71275; 80053; 83880; 84484; 85025; 85379; 85610; 85730; 93005; 99285; Q9967

== ENCOUNTER → 2025-07-05 18:42 | Outpatient (BNV) | payer OTHER, SELFPAY | PROVIDERS: Emergency Provider Emergency Medicine; Visit Provider Internal Medicine Cardiovascular Disease | DX: R07.9 Chest pain, unspecified (principal) | CPT/HCPCS: 93010 ==

== ENCOUNTER → 2025-07-05 18:55 | Outpatient (BNV) | payer OTHER, SELFPAY | PROVIDERS: Visit Provider Student in an Organized Health Care Education/Training Program | DX: R07.9 Chest pain, unspecified (principal) | CPT/HCPCS: 71046 ==